=== PATIENT | female | born 1975 | race African-American/Black ===

== ENCOUNTER 2024-09-07 04:50 | Emergency (ER) | payer OTHER ==
[~2024-09-07] VITALS: Ht 172.7 cm; Wt 75.0 kg
[~2024-09-07 04:50] MED LIST: ALLOPURINOL200 MG PO; AMBIEN10 MG PO; ARAVA20 MG PO; HYDROXYCHLOR200 MG PO; PREDNISONE5 MG PO; PROTONIX40 M2 PO; ZITHROMAX250 MG PO; ZYRTEC10 MG PO
[2024-09-07 06:05] VITALS: BP 135/85
[2024-09-07 06:15] VITALS: BP 131/84
[2024-09-07 06:15] LABS: URINE BILIRUBIN - DIPSTICK Negative (NEGATIVE); URINE BLOOD DIPSTICK Large (NEGATIVE); URINE COLOR Yellow; URINE GLUCOSE - DIPSTICK Negative (NEGATIVE); URINE KETONE Negative (NEGATIVE); URINE LEUK ESTERASE Trace (NEGATIVE); URINE NITRITE - DIPSTICK Negative (Negative); URINE PH 5.5 (4.5-8.0); URINE PROTEIN - DIPSTICK >=300 mg/dL (NEG-TRACE); URINE SPECIFIC GRAVITY >=1.030; URINE UROBILINOGEN - DIPSTICK 0.2 E.U./dL (0.2)
[2024-09-07 06:16] LABS: BASO% 0.3 % (0-3); EOS% 0.7 % (0-8); HEMATOCRIT 39.7 % (37.0-47.0); HEMOGLOBIN 12.1 g/dl (12.0-16.0); IMMATURE GRANULOCYTES 0.6 % (0.0-5.0); LYMPH% 13.6 % (15-41); MEAN CELL VOLUME 84.5 fL CALC (80.0-100.0); MEAN CORPUSCULAR HGB 25.7 pG CALC (26.0-32.0); MEAN CORPUSCULAR HGB CONC 30.5 g/dL CAL (32.0-36.0); MONO% 10.2 % (2-13); NEUT# 7.01 thou/uL (2.00-7.15); NEUT% 74.6 % (42-76); RED BLOOD COUNT 4.7 mill/uL (4.20-5.60)
[2024-09-07 06:23] LABS: URINE BACTERIA FEW hpf; URINE RBC 50-100 RBC/hpf (0-5); URINE SQUAMOUS EPITHELIAL CELL FEW EPI/hpf (0-FEW)
[2024-09-07 06:30] VITALS: BP 129/86
[2024-09-07 06:45] VITALS: BP 127/82
[2024-09-07] MEDS ORDERED: METOCLOPRAMIDE HCL 10 MG/2 ML SDV IV ONE (06:45)
[2024-09-07] MEDS ORDERED: HYDROmorphone HCL 2 MG/AMP IV ONE (06:45)
[2024-09-07 06:46] LABS: ALBUMIN 4.1 g/dL (3.2-5.0); ALKALINE PHOSPHATASE 103 u/l (38-126); ANION GAP 12 (6-22 (CALC)); BILIRUBIN, TOTAL 0.6 mg/dL (0.02-1.3); BUN 19 mg/dL (7-17); BUN/CREATININE RATIO 14 (12-20 (CALC)); CARBON DIOXIDE 25 mmol/l (22-30); CHLORIDE 108 mmol/l (95-108); CPK 205 u/l (30-135); CREATININE 1.3 mg/dL (0.5-1.0); ESTIMATED GFR 50 ML/MIN (>=90 (CALC)); LIPASE 30 u/l (23-300); POTASSIUM 4.8 mmol/l (3.5-5.1); SGOT/AST 38 u/l (14-36); SODIUM 140 mmol/l (137-146); TOTAL PROTEIN 6.7 g/dL (6.3-8.2)
[2024-09-07] MEDS ORDERED: CEPHALEXIN500 MG PO (07:21)
[2024-09-07 07:43] VITALS: BP 127/82
== END 2024-09-07 07:50 | disposition home or self-care (01) | DRG 690 ==
LOC: ED 04:50
PROVIDERS: Internal Medicine
DX: N39.0 Urinary tract infection, site not specified (principal); Z94.0 Kidney transplant status
CPT/HCPCS: J1171; J2765